=== PATIENT | male | born 1970 | race Caucasian/White ===

== ENCOUNTER 2017-08-17 11:44 | Emergency (ER) | payer MEDICAID, OTHER ==
[~2017-08-17] VITALS: Ht 189.2 cm; Wt 82.6 kg
[~2017-08-17 11:44] MED LIST: ECOT81TA2 PO; HYDR10 PO
[2017-08-17 11:52] VITALS: BP 130/68; PULSE 82; RESP 16; TEMP 98.4; O2SAT 98
--- NOTE | 2017-08-17 13:44 | RADRPT ---
EXAM DATE/TIME: 08/17/2017 13:27 [place] COMPARISON: No previous studies available for comparison. INDICATIONS : Left forearm pain post a shelf falling onto him MEDICAL HISTORY : None. SURGICAL HISTORY : None. ENCOUNTER: Initial ACUITY: 1 day PAIN SCORE: 5/10 LOCATION: Left distal forearm FINDINGS: Two view examination of the left forearm demonstrates no evidence of fracture or dislocation. Bony m ineralization is normal. The soft tissue structures are intact. CONCLUSION: Negative for fracture. Wrist films may be of benefit. Can Hendrix MD FACR on August 17, 2017 at 13:42 Board Certified Radiologist. This report was verified electronically.
--- NOTE | 2017-08-17 14:06 | PD ---
HPI Chief Complaint: Injury Time Seen by Provider: 13:08 Travel History International Travel<30 days: No Contact w/Intl Traveler<30days: No Traveled to known affect area: No History of Present Illness HPI This is a 46-year-old male with facial laceration and contusion to the left upper extremity. While building a shelf at home the support bracket broke falling grazing the face causing a laceration and made impact with the left arm. He has a laceration to his left cheek. Pain within the left forearm dorsal aspect. He denies paresthesia or weakness of the extremity. No loss of consciousness. No headache or visual changes. Symptom severity is moderate. Aggravated by palpation of the areas. No alleviating factors. PFSH Past Medical History Medical History: Denies Significant Hx Asthma: No Cardiovascular Problems: No High Cholesterol: No Chest Pain: No COPD: No Diminished Hearing: No Hypertension: No Musculoskeletal: No Neurologic: No Sleep Apnea: No Tetanus Vaccination: Unknown ?: Not Past Surgical History Other Surgery: Yes (SPLEEN AND HEAD SURGERY CHILD) Social History Alcohol Use: Yes (SOC) Tobacco Use: No Substance Use: No Allergies-Medications (Allergen,Severity, Reaction): Coded Allergies: No Known Allergies (Unverified Adverse Reaction, Unknown, 08/17/17) Reported Meds & Prescriptions Reported Meds & Active Scripts Active Ibuprofen 800 Mg Tab 800 Mg PO Q6HR PRN Review of Systems Except as stated in HPI: all other systems reviewed are Neg General / Constitutional: No: Fever Eyes: No: Visual changes HENT: No: Headaches Cardiovascular: No: Chest Pain or Discomfort Respiratory: No: Shortness of Breath Gastrointestinal: No: Abdominal Pain Genitourinary: No: Dysuria Physical Exam Narrative GENERAL: Alert and well-appearing 46-year-old male SKIN: Warm and dry. 1.5cm superficial laceration to the left cheek and nasal fold. HEAD: Normocephalic. EYES: The pulse equal, round, reactive to light. EOMs intact. No injection or drainage. NECK: Supple, trachea midline. No midline spine tenderness. CARDIOVASCULAR: Regular rate and rhythm without murmurs, gallops, or rubs. RESPIRATORY: Breath sounds equal bilaterally. No accessory muscle use. GASTROINTESTINAL: Abdomen soft, non-tender, nondistended. MUSCULOSKELETAL: No cyanosis, or edema. Left upper extremity: Tenderness to the dorsal aspect of the distal forearm. He is able to flex and extend the wrist. He is able to supinate and pronate the hand. No deformity. 2+ brachial pulse. Normal sensation. Brisk cap refill. BACK: Nontender without obvious deformity. No CVA tenderness. Data Data Last Documented VS Vital Signs Date Time Temp Pulse Resp B/P (MAP) Pulse Ox O2 Delivery O2 Flow Rate FiO2 08/17/17 11:52 98.4 82 16 130/68 (88) 98 Orders Orders Forearm (2vws) (08/17/17 ) Tetanus/Diphtheria Tox Adult (Tetanus/Di (08/17/17 14:15) Splint Or Brace Apply/Monitor (08/17/17 14:09) Ed Discharge Order (08/17/17 14:10) Cockup Hand Splint (08/17/17 ) [facility] Medical Decision Making Medical Screen Exam Complete: Yes Emergency Medical Condition: Yes Differential Diagnosis Facial laceration, facial fracture, arm fracture, forearm contusion Narrative Course This is a 46-year-old male with facial laceration and contusion to the left upper extremity. While building a shelf at home the support bracket playing partially 40 pounds fell grazing the face causing a laceration and fell onto the left arm. The extremity is neurovascular intact. He has a normal neurologic exam. There was no loss of consciousness. Superficial Facial laceration was sutured closed. X-ray left upper extremity is negative for fracture. Patient was put into a Velcro wrist splint for comfort. Procedures Procedure Narrative LACERATION LOCATION: Facial LENGTH: 1.5 cm NUMBER OF STITCHES/MAMIE: 4 REPAIR: The area of the laceration was prepped with Betadine and sterilely draped. The laceration was infiltrated with 1% lidocaine. The wound was copiously irrigated and explored without evidence of foreign body, tendon injury or neurovascular injury. The wound was closed using 6-0 proline. This was a single layer repair. A sterile dressing was applied. The patient was advised to keep the dressing clean and dry. Patient tolerated the procedure well. Diagnosis Primary Impression: Facial laceration Qualified Codes: S01.81XA - Laceration without foreign body of other part of head, initial encounter Additional Impression: Contusion of left upper extremity Qualified Codes: S40.022A - Contusion of left upper arm, initial encounter Referrals: Primary Care Physician Additional Instructions: Sutures need to be removed in 5 days. Cleansed the area daily with soap and water and apply thinly of antibiotic ointment. Wrist splint as needed for comfort. He may need repeat x-rays if he had continued pain despite immobilization. Ibuprofen 800 mg every 6 hours as needed for pain Scripts Ibuprofen (Ibuprofen) 800 Mg Tab 800 MG PO Q6HR Y for PAIN, #40 TAB 0 Refills Prov: Suzy Jansen 08/17/17 Disposition: 01 DISCHARGE HOME Condition: Stable Suzy Jansen Aug 17, 2017 14:06
[2017-08-17] MEDS ORDERED: IBUP1TAB7 PO (14:09)
[2017-08-17] MEDS ORDERED: TETANUS/DIPHTHERIA TOXOID ADULT 0.5 ML VIAL IM ONE (14:15)
== END 2017-08-17 14:34 | disposition home or self-care (01) ==
LOC: PHEFT 11:44
DX: S01.412A Laceration without foreign body of left cheek and temporomandibular area, initial encounter (principal); S40.022A Contusion of left upper arm, initial encounter; W20.8XXA Other cause of strike by thrown, projected or falling object, initial encounter; Y93.H3 Activity, building and construction; Y92.009 Unspecified place in unspecified non-institutional (private) residence as the place of occurrence of the external cause; Z23 Encounter for immunization
CPT/HCPCS: 12011; 73090; 90471; 90714; 99283; L3908

== ENCOUNTER 2017-08-22 06:00 | Emergency (ER) | payer MEDICAID, OTHER ==
[~2017-08-22] VITALS: Ht 188 cm; Wt 82.1 kg
[~2017-08-22 06:00] MED LIST changes: -ECOT81TA2 PO; -HYDR10 PO; +IBUP1TAB7 PO
[2017-08-22 06:09] VITALS: BP 127/71; PULSE 91; RESP 18; TEMP 98.7; O2SAT 97
[2017-08-22 06:16] VITALS: BP 127/71; PULSE 91; RESP 18; TEMP 98.7; O2SAT 97
--- NOTE | 2017-08-22 06:50 | PD ---
HPI Chief Complaint: Injury Time Seen by Provider: 06:45 Travel History International Travel<30 days: No Contact w/Intl Traveler<30days: No Traveled to known affect area: No History of Present Illness HPI The patient is a 46-year-old male that lacerated his face on the fifth of this month with clean metal shelving at work. He was sutured at that time. He comes in today for suture removal. [facility] Past Medical History Medical History: Denies Significant Hx Asthma: No Cardiovascular Problems: No High Cholesterol: No Chest Pain: No COPD: No Diminished Hearing: No Hypertension: No Musculoskeletal: No Neurologic: No Sleep Apnea: No Influenza Vaccination: No Past Surgical History Surgical History: No Previous Surgery Other Surgery: Yes (SPLEEN AND HEAD SURGERY CHILD) Social History Alcohol Use: Yes (SOC) Tobacco Use: No Substance Use: No Allergies-Medications (Allergen,Severity, Reaction): Coded Allergies: No Known Allergies (Unverified Adverse Reaction, Unknown, 08/22/17) Reported Meds & Prescriptions Reported Meds & Active Scripts Active Ibuprofen 800 Mg Tab 800 Mg PO Q6HR PRN Review of Systems Except as stated in HPI: all other systems reviewed are Neg Physical Exam Narrative Skin: The laceration appears healed on the face and sutures aren't able to come out. None of the laceration appears infected. Data Data Last Documented VS Vital Signs Date Time Temp Pulse Resp B/P (MAP) Pulse Ox O2 Delivery O2 Flow Rate FiO2 08/22/17 06:19 18 97 Room Air 08/22/17 06:16 98.7 91 127/71 (89) MDM Medical Decision Making Medical Screen Exam Complete: Yes Emergency Medical Condition: Yes Medical Record Reviewed: Yes Differential Diagnosis Healing laceration, infected laceration, laceration not yet healed and unable to remove sutures. Narrative Course The patient has a healing laceration. It is not a full strength but we can take the stitches out now feels careful with his laceration. Diagnosis Primary Impression: Visit for suture removal Additional Instructions: As we discussed, the laceration is not healed that full-strength and will not be for another 3 weeks. Be careful not to apply to much tension to the area and do not hit the area because the wound could open up. Med/Other Pt SpecificInfo: No Change to Meds Disposition: 01 DISCHARGE HOME Condition: Stable Prosper Simeon MD Aug 22, 2017 06:50
== END 2017-08-22 07:03 | disposition home or self-care (01) ==
LOC: PHED 06:00
DX: S01.81XA Laceration without foreign body of other part of head, initial encounter (principal); X58.XXXA Exposure to other specified factors, initial encounter
CPT/HCPCS: 99281